=== PATIENT | female | born 1980 | race Caucasian/White ===

== ENCOUNTER → 2019-09-16 | Outpatient (CLI) | payer OTHER ==
--- NOTE | 2019-09-16 22:15 | CT ---
EXAMINATION TYPE: CT abdomen pelvis w con DATE OF EXAM: 09/16/2019 HISTORY: Diverticulitis per order. Persistent pain per patient. CT DLP: 1741.80mGycm Automated Exposure Control for Dose Reduction was Utilized. CONTRAST: CT scan of the abdomen and pelvis is performed with oral and with IV Contrast, patient injected with 100 mL of Isovue 300. COMPARISON: None. FINDINGS: LUNG BASES: No significant abnormality is appreciated. LIVER/GB: Liver is low dense relative to spleen suggesting diffuse fatty infiltration. Cholecystectom y clips noted. PANCREAS: No significant abnormality is seen. SPLEEN: Single central calcification in the spleen. Tiny splenule inferiorly axial image 31. ADRENALS: No significant abnormality is seen. KIDNEYS: No significant abnormality is seen. BOWEL: Oral contrast is reached level of terminal ileum making evaluation of distal bowel suboptimal. No suspicious small or large bowel dilatation. Diverticula in the left and sigmoid colon. Moderate t o severe areas of wall thickening proximal to mid sigmoid colon with mild surrounding fat stranding. No pneumoperitoneum. No well-formed fluid collection or abscess seen. Normal gas-filled appendix and cecum extends just anterior to the right of the proximal to mid sigmoid colonic diverticulosis. UTERUS/ADNEXA: Heterogeneous anteverted uterus with right lobulated prominence suspicious for roughly 5 cm fibroid axial image 74. Left-sided tubal ligation clip axial image 76. Second ligation clip dis placed into left upper pelvis axial image 69. LYMPH NODES: No greater than 1cm abdominal or pelvic lymph nodes are appreciated. OSSEOUS STRUCTURES: No significant abnormality is seen. OTHER: No significant additional abnormality is seen. IMPRESSION: 1. Distal colonic diverticulosis with suggestion of mild uncomplicated acute colitis/diverticulitis p roximal to mid sigmoid colon level. Degree of wall thickening is suspicious at this level an underlyi ng neoplasm cannot be excluded. Colonoscopy follow-up after treatment is advised to further evaluate. 2. Probable fibroid uterus, correlate clinically and/or with pelvic ultrasound if desired.
== END | disposition home or self-care (01) ==
LOC: RADCTMAIN 14:28
PROVIDERS: ATTEND Family Medicine
DX: K57.30 Diverticulosis of large intestine without perforation or abscess without bleeding (principal)
CPT/HCPCS: 74177; Q9967

== ENCOUNTER → 2020-02-04 | Outpatient (CLI) | payer OTHER ==
--- NOTE | 2020-02-05 09:17 | ECHOF ---
Referral Reason:[id number] History of Orthopnea MEASUREMENTS -------- HEIGHT: 162.6 cm WEIGHT: 102.5 kg BP: RVIDd: 2.9 cm (< 3.3) IVSd: 1.4 cm (0.6 - 1.1) LVIDd: 3.6 cm (3.9 - 5.3) LVPWd: 1.7 cm (0.6 - 1.1) IVSs: 1.7 cm LVIDs: 2.4 cm LVPWs: 2.2 cm Ao Diam: 2.9 cm (2.0 - 3.7) AV Cusp: 2.1 cm (1.5 - 2.6) LA Diam: 3.3 cm (2.7 - 3.8) MV EXCURSION: 22.213 mm (> 18.000) MV EF SLOPE: 99 mm/s (70 - 150) EPSS: 1.0 cm MV E Justin: 0.96 m/s MV DecT: 194 ms MV A Justin: 0.85 m/s MV E/A Ratio: 1.12 AR PHT: 491 ms RAP: 5.00 mmHg RVSP: 10.23 mmHg FINDINGS -------- Sinus rhythm. This was a technically adequate study. The left ventricular size is normal. There is moderate concentric left ventricular hypertrophy. O verall left ventricular systolic function is normal with, an EF between 55 - 60 %. The right ventricle is normal in size. The left atrial size is normal. The right atrial size is normal. Unable to visualize the IAS. The aortic valve is trileaflet and appears structurally normal. Trace amount of aortic regurgitatio n. The mitral valve is normal. There is trace mitral regurgitation. The tricuspid valve appears structurally normal. Trace tricuspid regurgitation present. Right akila tricular systolic pressure is normal at < 35 mmHg. There is no pulmonic regurgitation present. The aortic root size is normal. IVC Not well visulized. There is no pericardial effusion. CONCLUSIONS -------- 1. There is moderate concentric left ventricular hypertrophy. 2. Overall left ventricular systolic function is normal with, an EF between 55 - 60 %. 3. The left atrial size is normal. 4. The aortic valve is trileaflet and appears structurally normal. 5. Trace amount of aortic regurgitation. 6. There is trace mitral regurgitation. 7. Trace tricuspid regurgitation present. 8. There is no pericardial effusion. LOGISTICIAN: Vandana Alvarenga RDCS
== END | disposition home or self-care (01) ==
LOC: RADECHMAIN 13:56
PROVIDERS: ATTEND Family Medicine
DX: Z09 Encounter for follow-up examination after completed treatment for conditions other than malignant neoplasm (principal); I51.7 Cardiomegaly; Z87.898 Personal history of other specified conditions
CPT/HCPCS: 93306

== ENCOUNTER → 2020-06-29 | Outpatient (CLI) | payer OTHER ==
[2020-06-29 16:54] LABS: African American GFR (CKD) >90 (>60 ml/min/1.73 sqM); Blood Urea Nitrogen 11 mg/dL (7-17); Non-African American GFR(CKD) >90 (>60 ml/min/1.73 sqM)
--- NOTE | 2020-06-29 21:34 | CT ---
EXAMINATION TYPE: CT abdomen pelvis w con DATE OF EXAM: 06/29/2020 COMPARISON: 09/16/2019. HISTORY: Diverticulits, pain. CT DLP: 1606.30 mGycm Automated exposure control for dose reduction was used. TECHNIQUE: Helical acquisition of images was performed from the lung bases through the pelvis. CONTRAST: Performed with Oral Contrast and with IV Contrast, patient injected with 100 mL of Isovue 300. FINDINGS: LUNG BASES: No significant abnormality is appreciated. LIVER/GB: No acute abnormality is appreciated. Hepatic steatosis and cholecystectomy noted. PANCREAS: No significant abnormality is seen. SPLEEN: No significant abnormality is seen. ADRENALS: No significant abnormality is seen. KIDNEYS: No significant abnormality is seen. FREE AIR: No free air is visualized. RETROPERITONEAL ADENOPATHY: None visualized REPRODUCTIVE ORGANS: No acute abnormality is seen. Stable left tubal ligation clip. Additional metall ic density in the left lower quadrant. URINARY BLADDER: No significant abnormality is seen. PELVIC ADENOPATHY: None visualized. OSSEOUS STRUCTURES: No significant abnormality is seen. BOWEL: No bowel obstruction, free air or fluid. Colonic diverticulosis without definitive evidence t o suggest acute diverticulitis. OTHER: None. IMPRESSION: NO DEFINITE ACUTE ABNORMALITY. COLON DIVERTICULOSIS. INCIDENTAL NOTE OF METALLIC DENSITY IN THE LEFT LOWER QUADRANT, SUGGESTIVE OF DISPLACED TUBAL LIGATIO N CLIP. RECOMMEND CORRELATION WITH SURGICAL HISTORY.
== END | disposition home or self-care (01) ==
LOC: RADCTMAIN 15:08
PROVIDERS: ATTEND Family Medicine
DX: K57.30 Diverticulosis of large intestine without perforation or abscess without bleeding (principal)
CPT/HCPCS: 82565; 84520; 74177; 36415; Q9967

== ENCOUNTER 2020-08-08 07:23 | Day surgery (SDC) | payer OTHER ==
[2020-08-03 15:43] VITALS: BMI 37.8
[~2020-08-08 07:23] MED LIST: LACTATED RINGERS 1,000 ML IV SCH; LIDOCAINE 1% (10MG/ML) FOR IV START INTRADERMA PRN
[2020-08-08 07:49] VITALS: RESP 18; TEMP 98.2
[2020-08-08 07:56] LABS: Glucose,Whole Blood 129 mg/dL (75-99)
[2020-08-08] MEDS ORDERED: MIDAZOLAM 2 MG/2 ML VIAL ONE (08:19)
[2020-08-08] MEDS ORDERED: fentaNYL (PF) 50 MCG/ML 2 ML AMP ONE (08:19)
[2020-08-08] MEDS ORDERED: PROPOFOL 10 MG/ML 20 ML VIAL IV ONE (08:19)
[2020-08-08] MEDS ORDERED: LIDOCAINE 1% INJ 10MG/ML (20 ML MDV) ONE (08:19)
--- NOTE | 2020-08-08 08:54 | P.PCN ---
Date of Procedure: 08/08/20 Description of Procedure: BRIEF HISTORY: Patient is a 40-year-old female presented for outpatient colonoscopy for evaluation of diverticulitis. She reports episodes of diverticulitis in the past. She is been having some right-sided abdominal pain. No change in bowel habits. No family history of colon cancer. No prior colonoscopy. PROCEDURE PERFORMED: Colonoscopy with polypectomy. PREOPERATIVE DIAGNOSIS: Diverticulitis, no prior colonoscopy. ESTIMATED BLOOD LOSS: Minimal. IV sedation per Anesthesia. PROCEDURE: After informed consent was obtained, the patient, was brought into the endoscopy unit. IV sedation was administered by Anesthesia under continuous monitoring. Digital rectal examination was normal. Initially the Olympus CF-190 flexible video colonoscope was then inserted in the rectum, gradually advanced into the cecum without any difficulty. Careful examination was performed as the scope was gradually being withdrawn. Ileocecal valve and the appendiceal orifice were visualized and appeared normal. Prep was excellent. Mucosa of the cecum, ascending colon, transverse colon, descending colon, sigmoid colon, and rectum appeared normal. A few scattered small and large diverticula noted throughout the entire colon. A flat 3 mm ascending colon polyp was removed completely with cold forcep polypectomy. Retroflexion was performed in the rectum and no lesions were seen. The patient tolerated the procedure well. IMPRESSION: Small flat ascending colon polyp removed with cold forcep polypectomy. Mild pandiverticulosis. RECOMMENDATIONS: Findings of this examination were discussed with the patient . Okay to resume diet. Okay to resume medications. Recommend fiber supplementation. Await pathology from polypectomy. Recommend repeat colonoscopy in 7 years pending pathology from polypectomy.
[2020-08-08 09:12] VITALS: BP 124/92; PULSE 82
== END 2020-08-08 09:40 | disposition home or self-care (01) ==
LOC: ORWHC2ENDO 07:23
PROVIDERS: ATTEND Internal Medicine
DX: D12.2 Benign neoplasm of ascending colon (principal); K57.30 Diverticulosis of large intestine without perforation or abscess without bleeding; I10 Essential (primary) hypertension; E11.9 Type 2 diabetes mellitus without complications; Z88.0 Allergy status to penicillin; Z88.2 Allergy status to sulfonamides; Z87.891 Personal history of nicotine dependence; Z79.899 Other long term (current) drug therapy; Z79.84 Long term (current) use of oral hypoglycemic drugs; Z90.49 Acquired absence of other specified parts of digestive tract; Z98.51 Tubal ligation status
CPT/HCPCS: 81025; 88305; 45380; J2250; J2001; J3010; J2704

== ENCOUNTER → 2020-11-04 | Outpatient (CLI) | payer OTHER ==
--- NOTE | 2020-11-06 18:54 | US ---
EXAMINATION TYPE: US thyroid st tissue head/neck DATE OF EXAM: 11/04/2020 COMPARISON: NONE CLINICAL HISTORY: 40-year-old female I10 Hypertension, R53.83 Fatigue,E11.9 DM,R59.0. HTN, diabetic, fatigue, swelling in neck, fullness in supraclavicular region GLAND SIZE: Right Lobe: 5.3 x 1.5 x 2.3 cm Overall Parenchyma: heterogenous Left Lobe: 4.3 x 1.2 x 1.8 cm Overall Parenchyma: heterogeneous Isthmus Thickness: 0.7 cm NODULES RIGHT: # of nodules measured on right: 0 LEFT: # of nodules measured on left: 1 Possible oval 1.6 x 0.9 cm hypoechoic, nodule at the lower pole. No internal echogenic foci. This nod ule is questioned after review of the submitted images. It was not appreciated by the volunteer services coordinator and the appearance could be secondary to the extensive glandular heterogeneity. ISTHMUS: # of nodules measured in the isthmus: 0 Additional targeted scanning along the site of left supraclavicular swelling shows no discrete sonogr aphic abnormality. IMPRESSION: 1. Borderline thyromegaly with very heterogeneous glandular parenchyma. This could reflect goiter or diffuse thyroiditis. 2. The volunteer services coordinator did not identify a discrete nodule. However, review of the submitted images shows a possible 1.6 cm solid nodule versus product of the glandular heterogeneity at the left lower pole ( 15 of 32). Six-month follow-up recommended to reassess. 3. Additional targeted scanning along the site of patient's swelling at the left supraclavicular galina on shows no discrete sonographic abnormality. If any enlarging abnormality is detected, follow-up ult rasound.
== END | disposition home or self-care (01) ==
LOC: RADUSWWP 13:06
PROVIDERS: ATTEND Family Medicine
DX: I10 Essential (primary) hypertension (principal); E01.0 Iodine-deficiency related diffuse (endemic) goiter
CPT/HCPCS: 76536

== ENCOUNTER → 2021-02-06 | Outpatient (CLI) | payer OTHER ==
--- NOTE | 2021-02-07 08:30 | MM ---
Reason for exam: screening (asymptomatic). Baseline mammogram. Physical Findings: Nurse did not find any significant physical abnormalities on exam. MG Screening Mammo w CAD Bilateral CC and MLO view(s) were taken. There are scattered fibroglandular densities. There is a right upper outer quadrant mass and ultrasound is recommended. ASSESSMENT: Incomplete: need additional imaging evaluation, BI-RAD 0 RECOMMENDATION: Ultrasound of the right breast. [facility] will attempt to contact patient to return for ultrasound.
== END | disposition home or self-care (01) ==
LOC: RADMAMWWP 12:58
PROVIDERS: ATTEND Family Medicine
DX: Z12.31 Encounter for screening mammogram for malignant neoplasm of breast (principal)
CPT/HCPCS: 77067

== ENCOUNTER → 2021-02-15 | Outpatient (CLI) | payer OTHER ==
--- NOTE | 2021-02-16 10:36 | USB ---
Reason for exam: additional evaluation requested from abnormal screening. Physical Findings: Nurse did not find any significant physical abnormalities on exam. US Breast Workup Limited RT Right limited breast ultrasound including focal area of concern, retroareolar and axilla demonstrates no cystic or solid lesion seen. These results were verbally communicated with the patient and result sheet given to the patient on 02/15/21. ASSESSMENT: Negative, BI-RAD 1 RECOMMENDATION: Follow-up diagnostic mammogram of the right breast in 6 months.
== END | disposition home or self-care (01) ==
LOC: RADUSWWP 14:59
PROVIDERS: ATTEND Family Medicine
DX: R92.8 Other abnormal and inconclusive findings on diagnostic imaging of breast (principal)

== ENCOUNTER → 2021-05-08 | Outpatient (CLI) | payer OTHER ==
--- NOTE | 2021-05-08 16:03 | US ---
EXAMINATION TYPE: US thyroid st tissue head/neck DATE OF EXAM: 05/08/2021 COMPARISON: 11/04/2020 CLINICAL HISTORY: E04.9 Goiter. GLAND SIZE: Right Lobe: 4.5x1.5x1.9 cm Overall Parenchyma: heterogenous Left Lobe: 4.2x1.5x1.6 cm Overall Parenchyma: heterogeneous Isthmus Thickness: 0.7 cm NODULES RIGHT: # of nodules measured on right: 0 LEFT: # of nodules measured on left: 0 ISTHMUS: # of nodules measured in the isthmus: 0 Bilateral neck scanned, no evidence of lymphadenopathy. Previous Left inf possible nodule less discrete on todays exam IMPRESSION: Markedly heterogeneous thyroid without definite solid nodule seen. 2017 ACR TI-RADS LEVEL: TR-RADS 1 - BENIGN: No FNA *Highest TI-RADS level nodule reported
== END | disposition home or self-care (01) ==
LOC: RADUSWWP 13:43
PROVIDERS: ATTEND Family Medicine
DX: E04.9 Nontoxic goiter, unspecified (principal)
CPT/HCPCS: 76536

== ENCOUNTER → 2021-06-14 | Outpatient (CLI) | payer OTHER ==
--- NOTE | 2021-06-14 12:49 | XR ---
EXAMINATION TYPE: XR lumbar spine 2 or 3V DATE OF EXAM: 06/14/2021 CLINICAL HISTORY: pain TECHNIQUE: Three views of the lumbar spine are submitted. COMPARISON: None. FINDINGS: There are 5 lumbar type vertebral bodies identified. The lumbar spine shows satisfactory alignment w ithout evidence of acute fracture or dislocation. Vertebral body heights are within normal limits. Disc spaces are within normal limits. The overlying soft tissue appears unremarkable. IMPRESSION: No acute fracture or dislocation is seen in the lumbar spine. ICD 10 NO FRACTURE, INITIAL EVALUATION
== END | disposition home or self-care (01) ==
LOC: RADXRMAIN 12:24
PROVIDERS: ATTEND Family Medicine
DX: M54.50 Low back pain, unspecified (principal)
CPT/HCPCS: 72100

== ENCOUNTER → 2021-09-21 | Outpatient (CLI) | payer OTHER ==
--- NOTE | 2021-09-21 11:54 | MM ---
Reason for exam: follow-up at short interval from prior study. Last mammogram was performed 7 months ago. History: Family history of breast cancer in cousin. Physical Findings: A clinical breast exam by your physician is recommended on an annual basis and results should be correlated with mammographic findings. MG Diagnostic Mammo RT w CAD CC and MLO view(s) were taken of the right breast. Prior study comparison: February 06, 2021, bilateral MG screening mammo w CAD. There are scattered fibroglandular densities. Finding: There is a tiny, stable 2 mm equal density (isodense), circumscribed round mass in the right breast. No significant changes in finding since February 06, 2021. These results were verbally communicated with the patient and result sheet given to the patient on 09/21/21. ASSESSMENT: Benign, BI-RAD 2 RECOMMENDATION: Return to routine screening mammogram schedule for both breasts. Back on schedule for January 2022.
== END | disposition home or self-care (01) ==
LOC: RADMAMWWP 10:06
PROVIDERS: ATTEND Family Medicine
DX: R92.8 Other abnormal and inconclusive findings on diagnostic imaging of breast (principal)
CPT/HCPCS: 77065

== ENCOUNTER → 2023-03-13 | Outpatient (CLI) | payer OTHER ==
--- NOTE | 2023-03-14 08:15 | MM ---
Reason for Exam: Screening (asymptomatic). Last mammogram was performed 2 year(s) and 1 month(s) ago. Patient History: Menarche at age 11. First Full-Term at age 21. Last menstrual period: 02/15/2023 Risk Values: Judy 5 year model risk: 0.7%. NCI Lifetime model risk: 8.7%. Prior Study Comparison: 02/06/2021 Bilateral Screening Mammogram, [facility]. 09/21/2021 Right Diagnostic Mammogram, [facility]. Tissue Density: There are scattered fibroglandular densities. Findings: Analyzed By CAD. There is no suspicious group of microcalcifications or new suspicious mass in either breast. Stable chronic nodularity within both breasts. Overall Assessment: Benign, BI-RAD 2 Management: Screening Mammogram of both breasts in 1 year. A clinical breast exam by your physician is recommended on an annual basis and results should be correlated with mammographic findings. Note on Judy scores and lifetime risk: 1. A Judy score greater than 3% is considered moderate risk. If this is the case, consider specialist referral to assess eligibility for a risk reducing agent. If overall lifetime risk for the development of breast cancer is 20% or higher, the patient may qualify for future screening with alternating mammogram and breast MRI. Electronically signed and approved by: Jose M Ward D.O.
== END | disposition home or self-care (01) ==
LOC: RADMAMWWP 13:05
PROVIDERS: ATTEND Family Medicine
DX: Z12.31 Encounter for screening mammogram for malignant neoplasm of breast (principal)
CPT/HCPCS: 77067